=== PATIENT | male | born 1980 | race Caucasian/White ===

== ENCOUNTER 2018-12-26 20:53 | Emergency (ER) | payer BC ==
[~2018-12-26] VITALS: Ht 170.2 cm; Wt 84.4 kg
[2018-12-26 21:14] VITALS: BP 131/82; PULSE 69; RESP 16; Ht 170.2 cm; Wt 84.4 kg
[2018-12-26] MEDS ORDERED: KETOROLAC 30 MG INJ IM STA (23:59)
[2018-12-27] MEDS ORDERED: IBUP-1542 PO (02:01)
[2018-12-27] MEDS ORDERED: ACET-141 PO (02:01)
--- NOTE | 2018-12-27 02:03 | ERD ---
ER Documentation Chief Complaint Chief Complaint FELL ON RIGHT HAND; INJURY, PAIN 5/10 ROS All systems reviewed and are negative except as per history of present illness. Medications Home Meds Active Scripts Acetaminophen* (Acetaminophen*) 500 MG Extra Strength Tablet, 500 MG PO Q4H PRN for PAIN AND OR ELEVATED TEMP, #30 TAB Prov:JESSICA BOWENS DO 12/27/18 Ibuprofen* (Motrin*) 600 Mg Tab, 600 MG PO Q6H PRN for PAIN AND OR ELEVATED TEMP, #30 TAB Prov:JESSICA BOWENS DO 12/27/18 Allergies Allergies: Coded Allergies: No Known Allergy (Unverified , 12/26/18) PMhx/Soc History of Surgery: Yes (appendectomy) Hx Alcohol Use: Yes (occasional use) Hx Substance Use: No Smoking Status: Current some day smoker Physical Exam Vitals Vital Signs Date Temp Pulse Resp B/P (MAP) Pulse Ox O2 O2 Flow FiO2 Time Delivery Rate 12/26/18 98.1 69 16 131/82 98 21:14 (98) Physical Exam Const: No acute distress Head: Atraumatic Eyes: Normal Conjunctiva ENT: Normal External Ears, Nose and Mouth. Neck: Full range of motion. No meningismus. Resp: Clear to auscultation bilaterally Cardio: Regular rate and rhythm, no murmurs Abd: Soft, non tender, non distended. Normal bowel sounds Skin: No petechiae or rashes Back: No midline or flank tenderness Ext: No cyanosis, or edema Neur: Awake and alert Psych: Normal Mood and Affect Results 24 hrs Current Medications Medications Dose Sig/Beth[place] Start Time Status Last (Trade) Ordered Route PRN Stop Time Admin Dose Reason Admin Ketorolac 30 mg ONCE STAT 12/26/18 DC 12/27/18 Tromethamine IM 23:59 00:09 (Toradol) 12/27/18 00:00 Departure Diagnosis: Primary Impression: Closed fracture of 5th metacarpal Encounter type: initial encounter Metacarpal location: base Fracture alignment: nondisplaced Laterality: right Qualified Codes: S62.346A - Nondisplaced fracture of base of fifth metacarpal bone, right hand, initial encounter for closed fracture Condition: Fair Patient Instructions: Treating Hand Fractures Referrals: [facility] YOU HAVE RECEIVED A MEDICAL SCREENING EXAM AND THE RESULTS INDICATE THAT YOU DO NOT HAVE A CONDITION THAT REQUIRES URGENT TREATMENT IN THE EMERGENCY DEPARTMENT. FURTHER EVALUATION AND TREATMENT OF YOUR CONDITION CAN WAIT UNTIL YOU ARE SEEN IN YOUR DOCTORS OFFICE WITHIN THE NEXT 1-2 DAYS. IT IS YOUR RESPONSIBILITY TO MAKE AN APPOINTMENT FOR FOLOW-UP CARE. IF YOU HAVE A PRIMARY DOCTOR --you should call your primary doctor and schedule an appointment IF YOU DO NOT HAVE A PRIMARY DOCTOR YOU CAN CALL OUR PHYSICIAN REFERRAL HOTLINE AT IF YOU CAN NOT AFFORD TO SEE A PHYSICIAN YOU CAN CHOSE FROM THE FOLLOWING [facility] [address] [facility] [address] [facility] [address] [facility] [address] [facility] [address]. [facility] [address] [facility]. [facility] Urgent Care 7 a.m.- 11 p.m. Every Day of the Week NO APPOINTMENT OR AUTHORIZATION NEEDED Additional Instructions: Llame al doctor MAANA y alison curtis RONALDO PARA DENTRO DE 1-2 CARLOS.Dgale a la secretaria que nosotros le instruimos hacer esta ronaldo.Avise o llame si lake condicin se empeora antes de la ronaldo. Regresa aqui si peor o no mejor. JESSICA BOWENS DO Dec 27, 2018 02:02
== END 2018-12-27 02:32 | disposition home or self-care (01) ==
LOC: FTE 20:53
DX: S62.346A Nondisplaced fracture of base of fifth metacarpal bone, right hand, initial encounter for closed fracture (principal); F17.210 Nicotine dependence, cigarettes, uncomplicated; X58.XXXA Exposure to other specified factors, initial encounter; Y92.9 Unspecified place or not applicable
CPT/HCPCS: 29125; 73130; 96372; 99284; J1885